=== PATIENT | female | born 1985 | race African-American/Black ===

== ENCOUNTER 2024-10-21 12:13 | Emergency (ER) | payer OTHER ==
[2024-10-21] MEDS ORDERED: Ipratropium/Albuterol 3 ML NEB ONE (12:35)
[2024-10-21] MEDS ORDERED: Acetaminophen 500 MG TAB ONE (13:26)
[2024-10-21] MEDS ORDERED: diphenhydrAMINE 50 MG/ML VIAL ONE (13:47)
[2024-10-21] MEDS ORDERED: Metoprolol Tartrate 5 MG (5 mL) VIAL ONE (13:47)
[2024-10-21] MEDS ORDERED: Ketorolac Tromethamine 30 MG (1 mL) VIAL ONE (13:47)
[2024-10-21] MEDS ORDERED: Sodium Chloride 0.9% 1,000 ML ONE (13:47)
[2024-10-21] MEDS ORDERED: Metoclopramide HCl 10 MG (2 mL) VIAL ONE (14:00)
[2024-10-21 14:12] LABS: ALT (SGPT) 17 U/L (Less than 34); AST (SGOT) 15 U/L (11-34); Albumin 3.9 g/dL (3.1-4.5); Alkaline Phosphatase 65 U/L (40-110); Anion Gap 12 mmol/L (10-20); BUN (Urea Nitrogen) 8 mg/dL (7.0-18.7); Bilirubin, Total 0.2 mg/dL (0.3-1.2); Calc. Creatinine Clearance 0 mL/min (70-130); Calcium 9.5 mg/dL (7.8-10.44); Carbon Dioxide 23 mmol/L (22-29); Chloride 108 mmol/L (98-107); Estimated GFR 88; Globulin 3.7 g/dL (2.4-3.5); Glucose 112 mg/dL (70-105); Potassium 3.8 mmol/L (3.5-5.1); Protein, Total 7.6 g/dL (6.0-8.3); Sodium 139 mmol/L (136-145)
[2024-10-21 14:15] LABS: Base Excess-Venous -0.7 mmol/L (-2.0 to 3.0); Bicarbonate (HCO3v) 27.1 mmol/L (22.0-28.0); CO2 Tension (PvCO2) 56.8 mmHg (42.0-51.0); Calcium, Ionized 1.32 mmol/L (1.15-1.33); Chloride 109 mmol/L (98-107); Hemoglobin - Calc 14.7 g/dL (12.0-16.0); Potassium 3.7 mmol/L (3.5-5.1); Sodium 143 mmol/L (138-145); T. Carbon Dioxide 28.9 mmol/L (22.0-28.0)
[2024-10-21 14:32] LABS: Bilirubin Negative (Negative); Blood, Urine Trace (Negative); Glucose, Urine (Dipstick) Negative (Negative); Ketone, Urine Negative (Negative); Leukocyte Trace (Negative); Nitrite Negative (Negative); Protein, Urine (Dipstick) Negative (Neg-Trace); Urobilinogen 0.2 mg/dL (Less than 2)
[2024-10-21 14:40] LABS: Clarity Hazy (Clear); Pregnancy Test - Urine (BHCG) Negative (Negative); Pregu Control Background? CLEAR/WHITE (CLR/WHITE); Pregu Control Bar Appear? YES (CONTROL BAR)
[2024-10-21 14:44] LABS: Bacteria/HPF Rare-Few HPF (None Seen); CAUTI Indications for Culture Dysuria,urgency,freq; RBC/HPF 0-3 HPF (0-3)
[2024-10-21 14:45] LABS: Urine Culture Reflex No No
[2024-10-21 14:47] LABS: Amphetamine Not Detected (NotDetected); Barbiturates Screen Not Detected (NotDetected); Benzodiazepine Screen Not Detected (NotDetected); Cocaine Metabolite Screen Not Detected (NotDetected); Methadone Not Detected (NotDetected); Methamphetamine Not Detected (NotDetected); Opiate Screen Not Detected (NotDetected); Oxycodone Screen Not Detected (NotDetected); Phencyclidine (PCP) Not Detected (NotDetected); THC/Cannabinoid Screen Detected (NotDetected); Tricyclic Screen Not Detected (NotDetected)
[2024-10-21] MEDS ORDERED: predniSONE 20 MG TAB ONE (16:09)
== END 2024-10-21 16:19 | disposition home or self-care (01) ==
LOC: MADERS 12:13
DX: J20.9 Acute bronchitis, unspecified (principal); G43.909 Migraine, unspecified, not intractable, without status migrainosus
CPT/HCPCS: 71046; 80053; 80306; 81001; 81025; 82330; 82435; 82803; 84132; 84295; 85014; 87081; 87428; 87430; 96374; 96375; J1200; J1885; J2765; J7030; J7512; J7620

== ENCOUNTER 2025-07-18 07:47 | Emergency (ER) | payer MEDICAID, OTHER ==
[2025-07-18] MEDS ORDERED: Lidocaine Viscous Sol 2% 15 ml UD Cup ONE (08:00)
[2025-07-18] MEDS ORDERED: Mag-Al 1200 mg/1200 mg/30 ML UDCUP ONE (08:00)
[2025-07-18 08:36] LABS: #Basophils 0.1 thou/uL (0.0-0.2); #Eosinophils 0.2 thou/uL (0.0-0.7); #Lymphocytes 1.8 thou/uL (1.20-3.40); #Monocytes 0.3 thou/uL (0.11-0.59); #Neutrophils 5.7 thou/uL (1.40-6.50); %Basophils 1.1 % (0.0-1.0); %Eosinophils 2.8 % (0.0-10.0); %Lymphocytes 22.4 % (21.0-51.0); %Monocytes 3.9 % (0.0-10.0); %Neutrophils 69.9 % (42.0-75.0); Hematocrit 40.0 % (36.0-47.0); Hemoglobin 12.4 g/dL (12.0-16.0); Mean Corpuscular Hemoglobin 28.7 pg (27.0-31.0); Mean Corpuscular Volume 92.3 fl (78.0-98.0); Platelet Count 359 10x3/uL (130-400); Red Blood Cell (RBC) Count 4.34 mill/uL (4.20-5.40); White Blood Cell (WBC) Count 8.2 10x3/uL (4.8-10.8)
[2025-07-18 08:43] LABS: BHCG - Serum Negative (NEGATIVE); Pregs Control Bar Appear? YES (CONTROL BAR)
[2025-07-18 08:44] LABS: Pregs Control Background? CLEAR/WHITE (CLR/WHITE)
[2025-07-18 08:54] LABS: ALT (SGPT) 25 U/L (Less than 34); AST (SGOT) 29 U/L (11-34); Albumin 3.9 g/dL (3.1-4.5); Alkaline Phosphatase 71 U/L (40-110); Anion Gap 15 mmol/L (10-20); BUN (Urea Nitrogen) 11 mg/dL (7.0-18.7); Bilirubin, Total 0.3 mg/dL (0.3-1.2); Calc. Creatinine Clearance 0 mL/min (70-130); Calcium 9.0 mg/dL (7.8-10.44); Carbon Dioxide 22 mmol/L (22-29); Chloride 109 mmol/L (98-107); Globulin 3.5 g/dL (2.4-3.5); Glucose 106 mg/dL (70-105); Lipase 60 U/L (8-78); Potassium 4.3 mmol/L (3.5-5.1); Sodium 142 mmol/L (136-145)
== END 2025-07-18 09:16 | disposition home or self-care (01) ==
LOC: MADERS 07:47
DX: R10.11 Right upper quadrant pain (principal)
CPT/HCPCS: 80053; 83690; 84703; 85025; 93005; 99284